=== PATIENT | male | born 1995 | race Caucasian/White ===

== ENCOUNTER 2016-07-23 15:18 | Emergency (ER) | payer BC, OTHER ==
[~2016-07-23] VITALS: Ht 185.4 cm; Wt 89.4 kg
[2016-07-23 15:24] VITALS: TEMP 37; Ht 185.4 cm; Wt 89.4 kg
[2016-07-23] MEDS ORDERED: SULF800T23 PO (16:00)
[2016-07-23] MEDS ORDERED: CEPH500C2 PO (16:00)
[2016-07-23] MEDS ORDERED: INSPMPNVLG (16:04)
[2016-07-23] MEDS ORDERED: INSDGI SC (16:04)
[2016-07-23 16:12] VITALS: BP 118/62; PULSE 82; O2SAT 98
--- NOTE | 2016-07-25 00:06 | EMERGENCY ROOM VISIT NOTE ---
ED Visit Note First contact with patient: 15:28 CHIEF COMPLAINT: Wound infection. HISTORY OF PRESENT ILLNESS: Mr. Ceballos is an 21-year-old white male who ambulates into the ED complaining of a possible pilonidal abscess.. Patient reports proximally one week ago he noted some pain over the proximal gluteal fold on the right. His discomfort slowly increased in intensity throughout the week. He reports 2 days ago his girlfriend looked at the area and found a pimple-like lesion. He reports she squeezed the area and drained pus from the area. He reports since that time he is feeling better but he is still having mild discomfort in the area. Currently he describes his pain as a pressure sensation. He rates his discomfort 4/10. The pain is nonradiating. The pain worsens when he sits on his buttocks in the area is palpated. He has not identified any alleviating factors related to the pain. He has not taken medication for pain prior to arrival at the hospital. He denies any associated symptoms including fevers, chills, sweats, other skin eruptions, chest pain, shortness of breath, abdominal pain, nausea, vomiting, decreased appetite, lower extremity weakness/ numbness/tingling. Additionally patient reports he is a type 1 diabetic and has noted mild elevations of his sugar level over the last week. REVIEW OF SYSTEMS: As noted above in History of Present Illness; 8 body systems reviewed the patient and found to be negative unless noted above otherwise. PAST MEDICAL HISTORY: Type 1 diabetes, status post septoplasty. CURRENT MEDICATION: NovoLog and Lantus. ALLERGIES TO MEDICATION: Patient denies. SOCIAL HISTORY: Patient is currently employed; he feels safe in his home environment; he admits to tobacco and alcohol use. PHYSICAL EXAM: Vital Signs: Date Time Temp Pulse Resp B/P Pulse Ox O2 Delivery O2 Flow Rate FiO2 07/23/16 16:12 82 18 118/62 98 Room Air 07/23/16 15:24 37.0 97 18 124/74 97 Room Air General: 21 year-old white male in no acute distress, nontoxic appearing, afebrile and hemodynamically stable. Neurological: Awake, alert and oriented to person, place and time. Answering questions appropriately and following commands. Skin: Warm, dry and pink. Buttocks: There is an indurated area in the proximal gluteal fold on the right which measures about 2 cm in diameter. There is no fluctuance, pointing or drainage from the wound at this time. There is a small zone of inflammation around it but no lymphangitis. Thorax: Lungs sounds are clear to auscultation and equal bilaterally with symmetrical chest wall movement. No wheezing, rales or rhonchi. No increased respiratory effort. Abdomen: Flat, soft and nontender. Positive bowel sounds in all quadrants. No guarding or rigidity. ED COURSE: Patient is assessed as noted above. Patient was educated about his condition and instructed on his treatment plan; he verbalized understanding and agreement with this plan. CLINICAL IMPRESSION: Pilonidal abscess. DISPOSITION: Patient discharged to home in stable condition; prior to departure he was reassessed and subjectively reported he was feeling better and rated his discomfort 2/10. PLAN: Patient was encouraged to alternate ibuprofen and acetaminophen as needed for pain. Patient was prescribed Keflex 500 mg 4 times a day and Bactrim DS 2 times a day for 10 days. Patient was educated on signs of worsening infection. Patient was encouraged to follow-up at [facility] or return to the ED for recheck in 36-48 hours. Patient was encouraged return the ED for worsening signs of infection or any new /concerning symptoms.
== END 2016-07-23 16:13 | disposition home or self-care (01) ==
LOC: C.EDB 15:21 → C.EDD 16:13
DX: L05.01 Pilonidal cyst with abscess (principal); E10.9 Type 1 diabetes mellitus without complications; F17.200 Nicotine dependence, unspecified, uncomplicated

== ENCOUNTER 2017-05-14 23:31 | Emergency (ER) | payer BC, OTHER ==
[~2017-05-14] VITALS: Ht 177.8 cm; Wt 88.0 kg
[~2017-05-14 23:31] MED LIST: INSDGI SC; INSPMPNVLG
[2017-05-14] MEDS ORDERED: MIDAZOLAM HCL 5 MG/ML 2ML VIAL IV ONE (23:35)
[2017-05-14] MEDS ORDERED: ETOMIDATE 2 MG/ML 20 ML VIAL IV ONE (23:35)
[2017-05-14] MEDS ORDERED: SUCCINYLCHOLINE CHLORIDE 20 MG/ML 10 ML VIAL IV ONE (23:35)
[2017-05-14] MEDS ORDERED: SODIUM CHLORIDE 0.9% 10ML FLUSH IV ONE (23:35)
[2017-05-14] MEDS ORDERED: FENTANYL CITRATE INJ 50 MCG/1 ML 2 ML VIAL IV ONE (23:35)
[2017-05-14] MEDS ORDERED: PROPOFOL IV EMULSION 10 MG/ML 100 ML VIAL IV ONE (23:45)
[2017-05-14] MEDS ORDERED: SODIUM CHLORIDE 0.9% 1000ML 2,000 ML IV STA (23:48)
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
[2017-05-14 23:50] VITALS: TEMP 36.9; Ht 177.8 cm; Wt 88.0 kg
[2017-05-14 23:53] LABS: ISTAT CREATININE 1.2 mg/dl (0.6-1.3); ISTAT IONIZED CALCIUM 1.15 mmol/l (1.12-1.32); ISTAT POTASSIUM 3.3 mEq/L (3.3-5.0)
[2017-05-14] MEDS ORDERED: MIDAZOLAM HCL 5 MG/ML 1 ML VIAL IV STA (23:53)
[2017-05-14] MEDS ORDERED: FENTANYL CITRATE INJ 50 MCG/1 ML 2 ML VIAL IV STA (23:53)
[2017-05-14] MEDS ORDERED: SODIUM CHLORIDE 0.9% 1000ML 1,000 ML IV STA (23:53)
[2017-05-14] MEDS ORDERED: MIDAZOLAM HCL 5 MG/ML 2ML VIAL ONE (23:57)
[2017-05-15] MEDS ORDERED: OPTIRAY 320 IV PRN
[2017-05-15] MEDS ORDERED: PROPOFOL IV EMULSION 10 MG/ML 100 ML VIAL IV PRN
[2017-05-15 00:07] LABS: BASO % 0.4 %; BASO ABS # 0.05 K/uL (0-0.2); EOS ABS # 0.22 K/uL (0-0.5); HEMATOCRIT 42.3 % (42-52); HEMOGLOBIN 15.2 g/dL (14.0-18.0); IG# 0.02 K/uL (0.00-0.02); LYMPH % 25.9 %; LYMPH ABS # 2.92 K/uL (1.2-3.4); MEAN CELL VOLUME 81.3 fL (80-100); MEAN CORPUSCULAR HEMOGLOBIN 29.2 pg (25-34); MEAN CORPUSCULAR HGB CONC 35.9 g/dl (32-36); MEAN PLATELET VOLUME 10.5 fL (7.4-10.4); MONO ABS # 1.01 K/uL (0.11-0.59); NEUT % 62.5 %; NEUT ABS # 7.04 K/uL (1.4-6.5); PLATELET COUNT 425 K/uL (130-400); RED CELL DISTRIBUTION WIDTH CV 12.4 % (11.5-14.5); RED CELL DISTRIBUTION WIDTH SD 36.7 fL (36.4-46.3); WHITE BLOOD COUNT 11.26 K/uL (4.8-10.8)
[2017-05-15 00:09] LABS: ISTAT POTASSIUM 3.2 mEq/L (3.3-5.0); ISTAT SODIUM 136 mEq/L (135-144)
[2017-05-15 00:10] LABS: PTT PATIENT 23.1 SECONDS (21.0-31.0)
[2017-05-15] MEDS ORDERED: CEFAZOLIN IV 2,000 MG in DEXTROSE 5% 50ML 50 ML IV STA (00:10)
[2017-05-15] MEDS ORDERED: MIDAZOLAM HCL 5 MG/ML 1 ML VIAL IV STA (00:11)
[2017-05-15] MEDS ORDERED: MIDAZOLAM HCL 5 MG/ML 2ML VIAL ONE ×2 (00:12→01:43)
[2017-05-15 00:28] LABS: ALBUMIN 4.4 gm/dl (3.4-5.0); ALT/SGPT 24 U/L (12-78); AST/SGOT 23 U/L (15-37); BLOOD UREA NITROGEN 11 mg/dl (7-18); CARBON DIOXIDE 26 mmol/L (21-32); CREATININE 1.68 mg/dl (0.60-1.40); GLUCOSE 310 mg/dl (70-99); POTASSIUM 3.1 mmol/L (3.5-5.1); SODIUM 134 mmol/L (136-145)
[2017-05-15 00:30] LABS: TOTAL PROTEIN 8.3 gm/dl (6.4-8.2)
[2017-05-15 00:38] LABS: ALKALINE PHOSPHATASE 103 U/L (45-117); CKMB 2.6 ng/ml (0.5-3.6)
[2017-05-15] MEDS ORDERED: SODIUM CHLORIDE 0.9% 1000ML 1,000 ML IV STA (01:02)
[2017-05-15] MEDS ORDERED: HYDROmorphone INJ 1 MG/ML SYR IV STA (01:41)
[2017-05-15 02:16] VITALS: BP 127/64
[2017-05-15 02:26] VITALS: PULSE 70; O2SAT 100
--- NOTE | 2017-05-15 06:20 | DIAGNOSTIC IMAGING REPORT ---
HEAD WITHOUT CONTRAST (CT) CT DOSE: HISTORY: Mental status change AMS TECHNIQUE: Multiaxial CT images of the head were performed without the use of intravenous contrast. A dose lowering technique was utilized adhering to the principles of ALARA. Comparison: None. Findings: The paranasal sinuses and mastoid air cells are clear. The calvarium and skull base are intact. The ventricles and sulci are within normal limits. There is no mass, hematoma, midline shift, or acute infarct. Impression: No acute intracranial abnormality. The above report was generated using voice recognition software. It may contain grammatical, syntax or spelling errors. Electronically signed by: Everton Simons M.D. 05/15/2017 6:19 AM Dictated Date/Time: 05/15/2017 6:18 AM
--- NOTE | 2017-05-15 06:31 | DIAGNOSTIC IMAGING REPORT ---
CHEST ONE VIEW PORTABLE CLINICAL HISTORY: AMS tube position COMPARISON STUDY: No previous studies for comparison. FINDINGS: Endotracheal tube 4 cm above the remberto. Nasogastric tube overlying the gastric fundus. Lungs are considered clear. IMPRESSION: Lungs are clear. Endotracheal tube 4 cm above the remberto. Nasogastric tube within the gastric fundus. The above report was generated using voice recognition software. It may contain grammatical, syntax or spelling errors. Electronically signed by: Everton Simons M.D. 05/15/2017 6:30 AM Dictated Date/Time: 05/15/2017 6:29 AM
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
== END 2017-05-15 02:40 | disposition short-term general hospital (02) ==
LOC: EDBD 23:31 → C.EDB 23:34
DX: R45.6 Violent behavior (principal); R41.82 Altered mental status, unspecified; T14.91XA Suicide attempt, initial encounter; T44.3X1A Poisoning by other parasympatholytics [anticholinergics and antimuscarinics] and spasmolytics, accidental (unintentional), initial encounter; S11.91XA Laceration without foreign body of unspecified part of neck, initial encounter; X78.1XXA Intentional self-harm by knife, initial encounter; Y92.000 Kitchen of unspecified non-institutional (private) residence as the place of occurrence of the external cause; E86.0 Dehydration; E11.65 Type 2 diabetes mellitus with hyperglycemia; R00.0 Tachycardia, unspecified; I45.10 Unspecified right bundle-branch block; Z79.4 Long term (current) use of insulin